=== PATIENT | female | born 1955 | race Caucasian/White ===

== ENCOUNTER 2017-10-16 12:51 | Observation (INO) ==
[2017-10-16] MEDS ORDERED: HYDROmorphone PF Inj 1 MG/ML Ampul IV.PUSH STA (14:28)
[2017-10-16] MEDS ORDERED: HYDROmorphone PF Inj 2 MG/ML Vial IV.PUSH STA (14:34)
[2017-10-16 14:41] LABS: Baso % (Auto) 0.6 % (0.0-2.0); Eos # (Auto) 0.3 th/mm3 (0.0-0.4); Eos % (Auto) 3.7 % (0.0-4.0); Hemoglobin 12.3 gm/dL (11.6-15.3); Lymph # (Auto) 1.4 th/mm3 (1.0-4.8); Lymph % (Auto) 16.6 % (9.0-44.0); Mean Corpuscular HGB Conc 32.4 % (32.0-36.0); Mean Corpuscular Hemoglobin 29.8 pg (27.0-34.0); Mean Corpuscular Volume 92.1 fL (80.0-100.0); Mean Platelet Volume 7.4 fL (7.0-11.0); Mono # (Auto) 0.5 th/mm3 (0.0-0.9); Mono % (Auto) 5.9 % (0.0-8.0); Neut % (Auto) 73.2 % (16.0-70.0); Platelet Count 395 th/mm3 (150-450); Red Blood Count 4.13 mil/mm3 (4.00-5.30); White Blood Count 8.2 th/mm3 (4.0-11.0)
[2017-10-16 14:56] LABS: Chloride 100 meq/L (98-107); Potassium 4.4 meq/L (3.5-5.1); Sodium 138 meq/L (136-145)
[2017-10-16 15:02] LABS: Calcium 8.9 mg/dL (8.5-10.1)
[2017-10-16 15:03] LABS: Albumin 2.9 g/dL (3.4-5.0); Anion Gap 6 meq/L (5-15); Blood Urea Nitrogen 11 mg/dL (7-18); Carbon Dioxide 32.3 meq/L (21.0-32.0); Glucose,Random 114 mg/dL (74-106)
[2017-10-16 15:06] LABS: Alanine Aminotransferase 22 U/L (10-53); Aspartate Aminotransferase 27 U/L (15-37); Glomerular Filtration Rate 73 mL/min (>89)
[2017-10-16 15:08] LABS: Total Protein 8.1 g/dL (6.4-8.2)
[2017-10-16 15:09] LABS: Alkaline Phosphatase 90 U/L (45-117)
[2017-10-16 15:12] LABS: Creatine Kinase 35 U/L (26-192)
[2017-10-16 15:22] LABS: Prothrombin Time 64.1 sec (9.8-11.6)
[2017-10-16 15:39] LABS: Activated Partial Thrombo Time 63.6 sec (24.3-30.1)
[2017-10-16 15:44] LABS: INR 6.4 Ratio
--- NOTE | 2017-10-16 15:46 | ED ---
HPI General Chief complaint: Recheck/Abnormal Lab/Rx Stated complaint: Fell x 8 days/low back pain History of Present Illness HPI narrative: 62-year-old history of DVT, pulmonary embolism on warfarin 5 mg alternating with 6 mg daily, she has history of abdominal wall hernia, she is wheelchair dependent, a week ago she fell from the wheelchair, she was discharged after workup was completed, today she is here for supratherapeutic INR. Patient has a home nurse who checked her INR and was 8.5. Patient has no bleeding, no black stool. No chest pain or shortness of breath or any other complaints except for lower back pain from the fall a week ago. Related Data Home Medications Medication Instructions Recorded Confirmed cholecalciferol (vitamin D3) 2,000 unit PO DAILY 10/08/17 10/16/17 [Vitamin D3] glimepiride 4 mg PO BID 10/08/17 10/16/17 metoprolol succinate [Toprol XL] 50 mg PO DAILY 10/08/17 10/16/17 omeprazole 40 mg PO EVERY OTHER DAY 10/08/17 10/16/17 sertraline 100 mg PO DAILY 10/08/17 10/16/17 warfarin 5 mg PO Q OTHER DAY 10/08/17 10/16/17 warfarin 6 mg PO EVERY OTHER DAY 10/08/17 10/16/17 cyclobenzaprine 10 mg PO TID 10/16/17 10/16/17 Previous Rx's Medication Instructions Recorded oxycodone-acetaminophen [Percocet] 2 tab PO Q6H #16 tab 10/08/17 Allergies Allergy/AdvReac Type Severity Reaction Status Date / Time No Known Allergies Allergy Verified 10/16/17 13:35 Review of Systems ROS: all other systems reviewed are negative [facility] Medical History Medical History DVT (deep venous thrombosis) (Acute) Presence of IVC filter (Acute) A-fib (Acute) Brain bleed (Acute) Diabetes (Acute) GERD (gastroesophageal reflux disease) (Acute) Hypertension (Acute) Pulmonary embolism (Acute) Umbilical hernia (Acute) Surgical History Surgical History Hx of cholecystectomy (Acute) Hx of tonsillectomy (Acute) H/O craniotomy (Acute) H/O right knee surgery (Acute) History of appendectomy (Acute) History of embolectomy (Acute) Social History Social History Substance History: No History of Abuse Smoking Status: Never smoker How Often Do You Have a Drink Containing Alcohol: Never Recent Travel in [facility] within the Last 8 Weeks: No Recent Out of Country Travel within the Last 8 Weeks: No Immunization History Tetanus Immunization: Unsure Hx Influenza Vaccine This Season: No Exam Narrative Exam Narrative: GENERAL: Alert oriented 3 no acute distress SKIN: Focused skin assessment warm/dry. HEAD: Atraumatic. Normocephalic. EYES: Pupils equal and round. No scleral icterus. No injection or drainage. ENT: No nasal bleeding or discharge. Mucous membranes pink and moist. NECK: Trachea midline. No JVD. CARDIOVASCULAR: Regular rate and rhythm. No murmur appreciated. RESPIRATORY: No accessory muscle use. Clear to auscultation. Breath sounds equal bilaterally. GASTROINTESTINAL: Abdominal wall open wound, clean with some clear discharge abdomen soft, non-tender, nondistended. Hepatic and splenic margins not palpable. MUSCULOSKELETAL: No obvious deformities. No clubbing. No cyanosis. No edema. NEUROLOGICAL: Awake and alert. No obvious cranial nerve deficits. Motor grossly within normal limits. Normal speech. PSYCHIATRIC: Appropriate mood and affect; insight and judgment normal. Course Initial Documented Vital Signs Temperature 98.6 F 10/16/17 12:58 Pulse Rate 149 H 10/16/17 12:58 Respiratory Rate 18 10/16/17 12:58 Blood Pressure 122/57 L 10/16/17 12:58 Pulse Oximetry 95 10/16/17 12:58 Last Documented Vital Signs Temperature 98.6 F 10/16/17 12:58 Pulse Rate 73 10/16/17 15:55 Respiratory Rate 16 10/16/17 15:55 Blood Pressure 113/49 L 10/16/17 15:55 Pulse Oximetry 98 10/16/17 15:[address] [facility] Narrative Medical decision making narrative: 62-year-old female here for supratherapeutic INR of 8.5 at home, she has no bleeding, unable to do a Hemoccult on her due to body habitus, I am unable to fully examine her back due to pain, patient received Dilaudid here in the ER, she has abdominal wall open wound that she stays from my abdominal hernia that surgeries following with her, INR here is 6.5, patient will be admitted for supratherapeutic INR, received vitamin K p.o. , spoke with Dr. Hayward who accepted the patient. Medical Screen Exam Complete: Yes Emergency Medical Condition: Yes Lab Data Result diagrams: 10/16/17 14:15 10/16/17 14:15 Lab Results 10/16/17 10/16/17 10/16/17 Range/Units 14:15 14:15 14:15 CBC w Diff Auto diff final WBC 8.2 (4.0-11.0) th/mm3 RBC 4.13 (4.00-5.30) mil/mm3 Hgb 12.3 (11.6-15.3) gm/dL Hct 38.0 (35.0-46.0) % MCV 92.1 (80.0-100.0) fL MCH 29.8 (27.0-34.0) pg MCHC 32.4 (32.0-36.0) % RDW 14.0 (11.6-17.2) % Plt Count 395 (150-450) th/mm3 MPV 7.4 (7.0-11.0) fL Neut % (Auto) 73.2 H (16.0-70.0) % Lymph % (Auto) 16.6 (9.0-44.0) % [place] % (Auto) 5.9 (0.0-8.0) % Eos % (Auto) 3.7 (0.0-4.0) % Baso % (Auto) 0.6 (0.0-2.0) % Neut # (Auto) 6.0 (1.8-7.7) th/mm3 Lymph # (Auto) 1.4 (1.0-4.8) th/mm3 [place] # (Auto) 0.5 (0.0-0.9) th/mm3 Eos # (Auto) 0.3 (0.0-0.4) th/mm3 Baso # (Auto) 0.0 (0.0-0.2) th/mm3 WBC Differential . Differential Comment . PT 64.1 H (9.8-11.6) sec INR 6.4 H* Ratio APTT 63.6 H (24.3-30.1) sec Sodium 138 (136-145) meq/L Potassium 4.4 (3.5-5.1) meq/L Chloride 100 (98-107) meq/L Carbon Dioxide 32.3 H (21.0-32.0) meq/L Anion Gap 6 (5-15) meq/L BUN 11 (7-18) mg/dL Creatinine 0.79 (0.50-1.00) mg/dL Estimated GFR 73 L (>89) mL/min Random Glucose 114 H (74-106) mg/dL Calcium 8.9 (8.5-10.1) mg/dL Total Bilirubin 0.3 (0.2-1.0) mg/dL AST 27 (15-37) U/L ALT 22 (10-53) U/L Alkaline Phosphatase 90 (45-117) U/L Total Creatine Kinase 35 (26-192) U/L Troponin I Less than 0.02 L (0.02-0.05) ng/mL Total Protein 8.1 (6.4-8.2) g/dL Albumin 2.9 L (3.4-5.0) g/dL Discharge Plan Physicians Team ED Provider: Moises Adam Primary Care Provider: Santana Hargrove Attending Provider: Joseph Hayward Rxs /Orders / Referrals /Forms Prescriptions: No Action cyclobenzaprine 10 mg Tablet 10 mg PO TID RF: 0 metoprolol succinate [Toprol XL] 50 mg Tablet Extended Release 24 Hr 50 mg PO DAILY RF: 0 sertraline 100 mg Tablet 100 mg PO DAILY RF: 0 omeprazole 40 mg Capsule,Delayed Release(Dr/Ec) 40 mg PO EVERY OTHER DAY RF: 0 warfarin 6 mg Tablet 6 mg PO EVERY OTHER DAY RF: 0 glimepiride 4 mg Tablet 4 mg PO BID RF: 0 warfarin 5 mg Tablet 5 mg PO Q OTHER DAY RF: 0 cholecalciferol (vitamin D3) [Vitamin D3] 2,000 unit Tablet 2,000 unit PO DAILY RF: 0 oxycodone-acetaminophen [Percocet] 5-325 mg tablet 2 tab PO Q6H Qty: 16 RF: 0 Discharge Interventions Interventions: Vital Signs Last Done: 10/16/17 15:55 Status ED Status: Admitted Observation Patient
[2017-10-16] MEDS ORDERED: Phytonadione 5 MG/SWFI 5 ML Oral Syringe PO STA (15:52)
[2017-10-16] MEDS ORDERED: Bisacodyl 10 MG Supp RECTAL PRN (17:12)
[2017-10-16] MEDS ORDERED: Acetaminophen 325 MG Tablet PO PRN (17:12)
[2017-10-16] MEDS ORDERED: Dextrose 50% in Water 50 ML Vial IV.PUSH PRN (17:16)
--- NOTE | 2017-10-16 17:33 | P.HP ---
History of Present Illness Primary Care Physician: Santana Hargrove Chief Complaint: Elevated INR History of Present Illness: 62-year-old female with known history of atrial fibrillation, hypertension, history of pulmonary emboli, DVT, diabetes, history of intracranial hemorrhage due to supratherapeutic INR who presented to the emergency department because of supratherapeutic INR. Patient states that all this started approximately 8 days ago when she got her nightgown caught in her electric scooter and when she try to put out she fell backwards onto her butt and back. Patient did come to emergency department time and had CT scans done of her thoracic and lumbar spine without any acute abnormality. Patient was discharged home with pain medication, muscle relaxer. Patient continued to have significant pain and home health care was ordered for her. They came out to her house today for the first time they checked her INR in notified her that it was 8.4 and that she needed to go to the emergency department for evaluation. Patient states that she had had previous elevated INR is in the past and subsequently after that she developed a bilateral intracranial hemorrhage. Patient is very overly concerned about the INR level. She is treated with Coumadin for her atrial fibrillation, she does have history of pulmonary emboli and DVTs. Patient does have IVC filter. Patient presented to the emergency department and had laboratory studies performed her INR was 6.4. Patient does not have any signs of any active bleeding. Did not notice any prolonged bleeding, gums bleeding, dark colored stools, hematochezia, hematuria. ER physician evaluated patient and give the patient vitamin K 5 mg a recommended observation the hospital. Patient still having significant amount of back pain where she is having difficulty in ambulating, getting out of bed. She requested that a Bruno be placed in the emergency department because she is unable to get out of bed to urinate. Patient denies any unilateral lower extremity weakness, paresthesia, paralysis, loss of bowel or bladder control. - Diagnosis (1) Supratherapeutic INR Review of Systems All other systems reviewed negative except as stated in HPI Musculoskeletal: Reports abnormal walking, Reports back pain PMFSH - History History Provided By: Patient - Medical History Medical History: Medical History (Last Reviewed 10/16/17 @ 17:30 by MOIRA Harris) DVT (deep venous thrombosis) Presence of IVC filter A-fib Brain bleed Diabetes GERD (gastroesophageal reflux disease) Hypertension Pulmonary embolism Umbilical hernia - Surgical History Surgical History: Surgical History (Last Reviewed 10/16/17 @ 17:30 by MOIRA Harris) Hx of cholecystectomy Hx of tonsillectomy H/O craniotomy H/O right knee surgery History of appendectomy History of embolectomy - Family History Family History: Family History (Last Updated 10/16/17 @ 17:30 by MOIRA Harris) Mother History of liver cancer History of coronary artery disease Father History of valvular heart disease - Tobacco History Second Hand Smoke Exposure: No Tobacco Use In Past 30 Days: No Smoking Status: Never smoker - Alcohol History How Often Do You Have a Drink Containing Alcohol: Never - Substance Use History Substance History: No History of Abuse - Travel History Recent Travel in the [place] Within the Last 8 Weeks: No Recent Travel Out of the Country Within the Last 8 Weeks: No - Immunization History Tetanus Immunization: Unsure Hx Influenza Vaccine This Season: No Medications and Allergies Active Medications: Active Medications Acetaminophen (Tylenol) 650 mg PO Q4H PRN PRN Reason: Temp > 100.4 Al Hydroxide/Mg Hydroxide (Milk Of Magnesia Liq) 30 ml PO Q12H PRN PRN Reason: Mild Constipation Bisacodyl (Dulcolax Supp) 10 mg RECTAL DAILY PRN PRN Reason: SEVERE CONSITIPATION Dextrose (D50w Vial) 50 ml IV.PUSH UNSCH PRN PRN Reason: PER HYPOGLYCEMIA PROTOCOL Glucagon (Glucagon Inj) 1 mg OTHER PRN PRN PRN Reason: for Hypoglycemia Protocol Methocarbamol 1,000 mg/ Sodium (Chloride) 250 mls @ 500 mls/hr IV.SIG Q8HR CHAVA Stop: 10/19/17 06:29 Insulin Aspart (Novolog Insulin Correctional Sugar Inj) 0 unit SQ ACHS CHAVA; Protocol Ketorolac Tromethamine (Toradol Inj) 30 mg IV.PUSH Q6H CHAVA Lactulose (Lactulose Liq) 30 ml PO DAILY PRN PRN Reason: SEVERE CONSITIPATION Metoprolol Succinate (Toprol Xl) 50 mg PO DAILY CHAVA Ondansetron HCl (Zofran Inj) 4 mg IV.PUSH Q6H PRN PRN Reason: NAUSEA OR VOMITING Senna/Docusate Sodium (Tamie-Colace) 1 tab PO BID CHAVA Sennosides (Senokot) 17.2 mg PO Q12H PRN PRN Reason: Moderate Constipation Sertraline HCl (Zoloft) 100 mg PO DAILY CHAVA Allergies Allergy/AdvReac Type Severity Reaction Status Date / Time No Known Allergies Allergy Verified 10/16/17 13:35 Home Medications Medication Instructions Recorded Confirmed Type cholecalciferol (vitamin D3) 2,000 unit PO DAILY 10/08/17 10/16/17 History [Vitamin D3] glimepiride 4 mg PO BID 10/08/17 10/16/17 History metoprolol succinate [Toprol XL] 50 mg PO DAILY 10/08/17 10/16/17 History omeprazole 40 mg PO EVERY OTHER DAY 10/08/17 10/16/17 History sertraline 100 mg PO DAILY 10/08/17 10/16/17 History warfarin 5 mg PO Q OTHER DAY 10/08/17 10/16/17 History warfarin 6 mg PO EVERY OTHER DAY 10/08/17 10/16/17 History cyclobenzaprine 10 mg PO TID 10/16/17 10/16/17 History Exam Vital signs: Vital Signs 10/16/17 12:58 10/16/17 15:55 10/16/17 17:16 Temperature 98.6 F 97.3 F L Pulse Rate 149 H 73 70 Respiratory Rate 18 16 18 Blood Pressure 122/57 L 113/49 L 111/55 L Pulse Oximetry 95 98 95 Intake & Output 10/15/17 10/16/17 10/16/17 18:59 06:59 18:59 Weight 143.5 kg Other: Weight On Admission 143.5 kg Narrative: GENERAL: Well-developed, morbidly obese, in no acute distress. alert and orientated HEENT: Head is normocephalic without any lesions or masses noted. Facial features are symmetric. Eyes: Pupils equal round reactive to light. Extraocular muscles are intact. Conjunctivae were clear. Oropharyngeal: Pharynx without any erythema edema. Tongue is midline without deviation. Buccal mucosa is moist without any masses or lesions NECK: Supple without any masses. Trachea midline no deviation. No JVD, no bruits are appreciated CARDIAC: Regular rhythm, regular rate. S1/S2 are heard. No murmurs gallops or rubs. LUNGS: Clear to auscultation bilaterally. No wheeze, rhonchi or rales. No use of accessory muscles on inspiration or expiration. ABDOMEN: Soft, nontender. Nondistended. Bowel sounds heard in all 4 quadrants. No organomegaly or masses. Negative rebound, negative guarding EXTREMITIES: No edema, pulses are equal bilaterally. No cyanosis or clubbing NEUROLOGY: Mood and affect appear appropriate. Cranial nerves II through XII grossly intact. Muscle strength 5/5 in upper and lower extremities bilaterally. Deep tendon reflexes are 2+ in upper and lower extremities bilaterally. Results - Labs CBC & Chem 7: 10/16/17 14:15 10/16/17 14:15 Labs: Laboratory Results - last 24 hr 10/16/17 10/16/17 10/16/17 14:15 14:15 14:15 CBC w Diff Auto diff final WBC 8.2 RBC 4.13 Hgb 12.3 Hct 38.0 MCV 92.1 MCH 29.8 MCHC 32.4 RDW 14.0 Plt Count 395 MPV 7.4 Neut % (Auto) 73.2 H Lymph % (Auto) 16.6 [place] % (Auto) 5.9 Eos % (Auto) 3.7 Baso % (Auto) 0.6 Neut # (Auto) 6.0 Lymph # (Auto) 1.4 [place] # (Auto) 0.5 Eos # (Auto) 0.3 Baso # (Auto) 0.0 WBC Differential . Differential Comment . PT 64.1 H INR 6.4 H* APTT 63.6 H Sodium 138 Potassium 4.4 Chloride 100 Carbon Dioxide 32.3 H Anion Gap 6 BUN 11 Creatinine 0.79 Estimated GFR 73 L Random Glucose 114 H Calcium 8.9 Total Bilirubin 0.3 AST 27 ALT 22 Alkaline Phosphatase 90 Total Creatine Kinase 35 Troponin I Less than 0.02 L Total Protein 8.1 Albumin 2.9 L Caprini VTE Risk Assessment Caprini VTE Risk Assessment: Moderate/High Risk (score >= 2) Caprini Risk Assessment Model: Point Value = 1 Point Value = 2 Point Value = 3 Point Value = 5 Age 41-60 Minor surgery BMI > 25 kg/m2 Swollen legs Varicose veins or History of unexplained or recurrent spontaneous Oral contraceptives or hormone replacement Sepsis (< 1 month) Serious lung disease, including pneumonia (< 1 month) Abnormal pulmonary function Acute myocardial infarction Congestive heart failure (< 1 month) History of inflammatory bowel disease Medical patient at bed rest Age 61-74 Arthroscopic surgery Major open surgery (> 45 min) Laparoscopic surgery (> 45 min) Malignancy Confined to bed (> 72 hours) Immobilizing plaster cast Central venous access Age >= 75 History of VTE Family history of VTE Factor V Leiden Prothrombin [id number] Lupus anticoagulant Anticardiolipin antibodies Elevated serum homocysteine Heparin-induced thrombocytopenia Other congenital or acquired thrombophilia Stroke (< 1 month) Elective arthroplasty Hip, pelvis, or leg fracture Acute spinal cord injury (< 1 month) Prophylaxis Regimen: Total Risk Factor Score Risk Level Prophylaxis Regimen 0-1 Low Early ambulation 2 Moderate Order ONE of the following: *Sequential Compression Device (SCD) *Heparin 5000 units SQ BID 3-4 Higher Order ONE of the following medications: *Heparin 5000 units SQ TID *Enoxaparin/Lovenox 40 mg SQ daily (WT < 150 kg, CrCl > 30 mL/min) *Enoxaparin/Lovenox 30 mg SQ daily (WT < 150 kg, CrCl > 10-29 mL/min) *Enoxaparin/Lovenox 30 mg SQ BID (WT < 150 kg, CrCl > 30 mL/min) AND/OR *Sequential Compression Device (SCD) 5 or more Highest Order ONE of the following medications: *Heparin 5000 units SQ TID (Preferred with Epidurals) *Enoxaparin/Lovenox 40 mg SQ daily (WT < 150 kg, CrCl > 30 mL/min) *Enoxaparin/Lovenox 30 mg SQ daily (WT < 150 kg, CrCl > 10-29 mL/min) *Enoxaparin/Lovenox 30 mg SQ BID (WT < 150 kg, CrCl > 30 mL/min) AND *Sequential Compression Device (SCD) Assessment and Plan - Assessment (1) Supratherapeutic INR Code(s): R79.1 - Abnormal coagulation profile Status: Acute - Plan Supratherapeutic INR -Patient does not have any active bleeding noted at this time. Patient does have history of intracranial hemorrhage secondary to elevated INR. Will need to continue monitor closely -Status post vitamin K in the emergency department -Continue to hold Coumadin -PT/INR daily Acute low back pain -Start Toradol IV every 6 hours -Start Robaxin IV every 8 hours -K thermia pad to the area -Physical therapy evaluation Atrial fibrillation, hypertension -Home medications were continued Diabetes -Accu-Cheks with sliding scale insulin DVT prevention -Patient is on Coumadin with supratherapeutic INR at 6.4 at this time
[2017-10-16] MEDS: Ketorolac Inj 30 MG/ML (IVP) Vial IV.PUSH SCH ×2 (17:56→23:35)
[2017-10-16] MEDS: Methocarbamol Inj 1,000 MG in Sodium Chlor 0.9% Inj 240 ML IV.SIG SCH (18:09)
[2017-10-16] MEDS: Senna/Docusate Sodium 8.6/50 MG Tablet PO SCH (20:14)
[2017-10-16] MEDS: Insulin NovoLOG Aspart Correctional Sugar Inj SQ SCH (20:15)
[2017-10-17] MEDS: Methocarbamol Inj 1,000 MG in Sodium Chlor 0.9% Inj 240 ML IV.SIG SCH ×2 (02:26→09:39)
[2017-10-17] MEDS: Ketorolac Inj 30 MG/ML (IVP) Vial IV.PUSH SCH ×4 (05:20→23:51)
[2017-10-17 07:11] LABS: INR 4.2 Ratio; Prothrombin Time 41.7 sec (9.8-11.6)
--- NOTE | 2017-10-17 07:53 | P.DCO ---
- Physical Therapy Order: Evaluate and treat, Improve ambulation, Strength and gait training - Home Health Nursing Order: Medical education, Signs/symptoms of disease process, Nursing assessment with vital signs Instructions: PT/INR daily for 3 days then PT/INR 3 times weekly for 1 week, then PT/INR weekly for 3 weeks. Results to be sent to her primary medical doctor Dr. Hargrove - Certification I have seen patient Anju Scott on 10/17/17. My clinical findings support the need for the requested home health care services because: Deconditioned with increased weakness, High risk of falls I certify that my clinical findings support that this patient is homebound because: Unsteady gait/balance, Unsafe to leave home unassisted
--- NOTE | 2017-10-17 07:57 | P.PN ---
Subjective Interval history: 62-year-old female who is seen and examined in follow-up today because of supratherapeutic INR. Patient's INR is much improved today. Discussed with her that she would need to hold her Coumadin for at least another 2 days. Home health care should be able to manage her PT/INR. Patient's back pain is improved with the treatment being given to her here at the hospital. Vital signs are stable, patient remains afebrile. Physical Exam Vital signs: Vital Signs 10/16/17 12:58 10/16/17 15:55 10/16/17 17:16 Temperature 98.6 F 97.3 F L Pulse Rate 149 H 73 70 Respiratory Rate 18 16 18 Blood Pressure 122/57 L 113/49 L 111/55 L Pulse Oximetry 95 98 95 10/16/17 18:26 10/16/17 20:00 10/17/17 00:00 Temperature 97.4 F L 97.2 F L Pulse Rate 68 62 Respiratory Rate 18 18 Blood Pressure 92/46 L 134/61 Pulse Oximetry 95 98 Intake & Output 10/16/17 10/17/17 10/17/17 18:59 06:59 18:59 Intake Total 640 / 640 490 / 490 Output Total 50 / 50 450 / 450 Balance 590 / 590 40 / 40 Weight 143.5 kg 143.5 kg Intake: IV 250 / 250 250 / 250 Robaxin Inj 1,000 MG In NS Inj 250 / 250 250 / 250 240 ML @ 500 mls/hr IV.SIG Q8H CHAVA Rx#:[id number] Oral 390 / 390 240 / 240 Output: Urine 50 / 50 450 / 450 Other: Date of Last Bowel Movement 10/16/17 10/16/17 # Bowel Movements 0 Weight On Admission 143.5 kg Narrative: GENERAL: Well-developed, morbidly obese, in no acute distress. alert and orientated HEENT: Head is normocephalic without any lesions or masses noted. Facial features are symmetric. Eyes: Extraocular muscles are intact. Conjunctivae were clear. NECK: Supple without any masses. Trachea midline no deviation. No JVD, CARDIAC: Regular rhythm, regular rate. S1/S2 are heard. No murmurs gallops or rubs. LUNGS: Clear to auscultation bilaterally. No wheeze, rhonchi or rales. No use of accessory muscles on inspiration or expiration. ABDOMEN: Soft, nontender. Nondistended. Bowel sounds heard in all 4 quadrants. No organomegaly or masses. Negative rebound, negative guarding EXTREMITIES: No edema, pulses are equal bilaterally. No cyanosis or clubbing NEUROLOGY: Mood and affect appear appropriate. Cranial nerves II through XII grossly intact. Moving all extremities, speech is clear - Urinary Catheter Management Indwelling Urethral Catheter Cath placed during this visit: yes Reason for continuing: Other continuation reason Insertion date: 10/16/17 Insertion time: 16:15 Results - Labs CBC & Chem 7: 10/16/17 14:15 10/16/17 14:15 Laboratory Results - last 24 hr 10/16/17 10/16/17 10/16/17 14:15 14:15 14:15 CBC w Diff Auto diff final WBC 8.2 RBC 4.13 Hgb 12.3 Hct 38.0 MCV 92.1 MCH 29.8 MCHC 32.4 RDW 14.0 Plt Count 395 MPV 7.4 Neut % (Auto) 73.2 H Lymph % (Auto) 16.6 [place] % (Auto) 5.9 Eos % (Auto) 3.7 Baso % (Auto) 0.6 Neut # (Auto) 6.0 Lymph # (Auto) 1.4 [place] # (Auto) 0.5 Eos # (Auto) 0.3 Baso # (Auto) 0.0 WBC Differential . Differential Comment . PT 64.1 H INR 6.4 H* APTT 63.6 H Sodium 138 Potassium 4.4 Chloride 100 Carbon Dioxide 32.3 H Anion Gap 6 BUN 11 Creatinine 0.79 Estimated GFR 73 L POC Glucose Random Glucose 114 H Calcium 8.9 Total Bilirubin 0.3 AST 27 ALT 22 Alkaline Phosphatase 90 Total Creatine Kinase 35 Troponin I Less than 0.02 L Total Protein 8.1 Albumin 2.9 L 10/16/17 10/17/17 20:13 06:18 CBC w Diff WBC RBC Hgb Hct MCV MCH MCHC RDW Plt Count MPV Neut % (Auto) Lymph % (Auto) [place] % (Auto) Eos % (Auto) Baso % (Auto) Neut # (Auto) Lymph # (Auto) [place] # (Auto) Eos # (Auto) Baso # (Auto) WBC Differential Differential Comment PT 41.7 H D INR 4.2 APTT Sodium Potassium Chloride Carbon Dioxide Anion Gap BUN Creatinine Estimated GFR POC Glucose 124 H Random Glucose Calcium Total Bilirubin AST ALT Alkaline Phosphatase Total Creatine Kinase Troponin I Total Protein Albumin Assessment and Plan - Assessment (1) Supratherapeutic INR Code(s): R79.1 - Abnormal coagulation profile Status: Acute (2) Intractable low back pain Code(s): M54.5 - Low back pain Status: Acute - Plan Supratherapeutic INR, improved -Patient still does not have any active bleeding noted at this time. Patient does have history of intracranial hemorrhage secondary to elevated INR. Will need to continue monitor closely -Status post vitamin K in the emergency department -Continue to hold Coumadin for at least another 2 days -PT/INR daily Acute low back pain -Continue Toradol IV every 6 hours -Continue Robaxin IV every 8 hours -K thermia pad to the area -Physical therapy evaluation for discharge planning: Physical therapy stated that patient failed evaluation miserably. They did not attempt a walker. Stood her up at bedside 3 separate occasions and patient had significant moans and groans with lightheadedness. Patient was placed back in the bed. Upon talking to the patient and notify her of the results. She states that that he was in normal status at home. Patient is upset that she cannot go home. I discussed with her that presently she is unsafe to discharge in her physical condition. She will require intense physical therapy 2 times daily until she is capable to function on her own. Atrial fibrillation, hypertension -Home medications were continued Diabetes -Accu-Cheks with sliding scale insulin DVT prevention -Patient is on Coumadin with supratherapeutic INR at 4.2 at this time
[2017-10-17] MEDS: Senna/Docusate Sodium 8.6/50 MG Tablet PO SCH ×2 (09:40→20:20)
[2017-10-17] MEDS: Sertraline 100 MG Tablet PO SCH (09:40)
[2017-10-17] MEDS: Insulin NovoLOG Aspart Correctional Sugar Inj SQ SCH ×4 (09:42→20:24)
[2017-10-17] MEDS: Methocarbamol 500 MG Tablet PO SCH (20:20)
[2017-10-18] MEDS: Ketorolac Inj 30 MG/ML (IVP) Vial IV.PUSH SCH ×3 (05:12→17:56)
[2017-10-18 06:27] LABS: INR 1.9 Ratio; Prothrombin Time 19.4 sec (9.8-11.6)
--- NOTE | 2017-10-18 07:48 | P.PN ---
Subjective Interval history: Patient seen and examined today for follow-up on supratherapeutic INR, low back pain. Patient states that she is feeling much better. Will need to await physical therapy clearance to go home with home health care. Vital signs are stable, patient remains afebrile. Physical Exam Vital signs: Vital Signs 10/17/17 08:00 10/17/17 11:54 10/17/17 15:56 Temperature 96.6 F L 97.4 F L 97.5 F L Pulse Rate 67 80 75 Respiratory Rate 18 Blood Pressure 109/55 L 118/52 L 131/62 Pulse Oximetry 96 96 95 10/17/17 20:00 10/18/17 00:00 Temperature 97.9 F 96.8 F L Pulse Rate 79 82 Respiratory Rate 20 Blood Pressure 126/57 L 148/63 H Pulse Oximetry 95 97 Intake & Output 10/17/17 10/18/17 10/18/17 18:59 06:59 18:59 Intake Total 970 / 970 480 / 480 Output Total 950 / 950 Balance 480 / 480 Weight 145.2 kg Intake: IV 250 / 250 Robaxin Inj 1,000 MG In NS Inj 250 / 250 240 ML @ 500 mls/hr IV.SIG Q8H CHAVA Rx#:[id number] Oral 720 / 720 480 / 480 Output: Urine 950 / 950 Other: # Voids 1 2 Date of Last Bowel Movement 10/16/17 10/16/17 # Bowel Movements 0 1 Narrative: GENERAL: Well-developed, morbidly obese, in no acute distress. alert and orientated HEENT: Head is normocephalic without any lesions or masses noted. Facial features are symmetric. Eyes: Extraocular muscles are intact. Conjunctivae were clear. NECK: Supple without any masses. Trachea midline no deviation. No JVD, CARDIAC: Regular rhythm, regular rate. S1/S2 are heard. No murmurs gallops or rubs. LUNGS: Clear to auscultation bilaterally. No wheeze, rhonchi or rales. No use of accessory muscles on inspiration or expiration. ABDOMEN: Soft, nontender. Nondistended. Bowel sounds heard in all 4 quadrants. No organomegaly or masses. Negative rebound, negative guarding EXTREMITIES: No edema, pulses are equal bilaterally. No cyanosis or clubbing NEUROLOGY: Mood and affect appear appropriate. Cranial nerves II through XII grossly intact. Moving all extremities, speech is clear - Urinary Catheter Management Indwelling Urethral Catheter Cath placed during this visit: yes, but has since been removed by the nurse Reason for continuing: Other continuation reason Insertion date: 10/16/17 Insertion time: 16:15 Removal date: 10/17/17 Removal time: 13:52 Results - Labs CBC & Chem 7: 10/16/17 14:15 10/16/17 14:15 Laboratory Results - last 24 hr 10/17/17 10/17/17 10/17/17 09:22 09:24 09:25 PT INR POC Glucose Greater than 600 H* 60 L 61 L 10/17/17 10/17/17 10/17/17 09:28 10:16 16:44 PT INR POC Glucose 60 L 151 H 133 H 10/17/17 10/18/17 10/18/17 20:23 06:00 07:14 PT 19.4 H D INR 1.9 POC Glucose 162 H 95 Assessment and Plan - Assessment (1) Supratherapeutic INR Code(s): R79.1 - Abnormal coagulation profile Status: Acute (2) Intractable low back pain Code(s): M54.5 - Low back pain Status: Acute - Plan Supratherapeutic INR, improved -Patient still does not have any active bleeding noted at this time. Patient does have history of intracranial hemorrhage secondary to elevated INR. Will need to continue monitor closely -Status post vitamin K in the emergency department -Resume Coumadin 5 mg daily -PT/INR daily Acute low back pain -Continue Toradol IV every 6 hours -Continue Robaxin IV every 8 hours -K thermia pad to the area -Physical therapy evaluation for discharge planning: Physical therapy stated that patient failed evaluation miserably. They did not attempt to walk her. Stood her up at bedside 3 separate occasions and patient had significant moans and groans with lightheadedness. Patient was placed back in the bed. Upon talking to the patient and notify her of the results. She states that that he was in normal status at home. Patient is upset that she cannot go home. I discussed with her that presently she is unsafe to discharge in her physical condition. She will require intense physical therapy 2 times daily until she is capable to function on her own. -Awaiting physical therapy clearance to go home with home health care, patient unable to go to rehab. Atrial fibrillation, hypertension -Home medications were continued Diabetes -Accu-Cheks with sliding scale insulin DVT prevention -Resume Coumadin today, INR 1.9 Discharge Planning: Discharge home with home health care in stable condition Activity: Ad grace. Diet: Diabetic diet Medication per medication reconciliation Follow-up with primary medical doctor in 1 week
[2017-10-18] MEDS: Senna/Docusate Sodium 8.6/50 MG Tablet PO SCH ×2 (08:20→22:43)
[2017-10-18] MEDS: Methocarbamol 500 MG Tablet PO SCH ×2 (08:20→22:43)
[2017-10-18] MEDS: Sertraline 100 MG Tablet PO SCH (08:21)
[2017-10-18] MEDS: Insulin NovoLOG Aspart Correctional Sugar Inj SQ SCH ×4 (08:21→22:44)
--- NOTE | 2017-10-18 17:49 | P.PNWCN ---
Wound Care Nurse Consult Description: Wound consult ordered by Humphrey PIZARRO for wound management. Communicated with: Seema GONZALES, Humphrey PIZARRO Recommendation: 1. Cleanse Midline abdomen full thickness ulcer with normal saline pat dry.Skin prep periwound. 2. Gently pack undermining cavity with Maxorb AG (cut in single half piece) Apply with sterile cotton tip applicator, leaving tail on wound base. 3. Cover with Opti foam gentle signa and date all dressing. 4. Please measure wound and undermining weekly. 5. Change dressing Daily x7 days ,Then every 3 days x4 weeks 6. Cleanse pannus and breast skin folds with remedy soft cloth barrier wipes and apply thin layer of Remedy antifungal powder in even thin layer BID or as needed for moisture control. 7. Follow up with out patient wound center. Additional information: Patient was seen today by communications writer and Seema GONZALES [facility].Patient alert and oriented x4 resting in bed in no acute distress.Dressing removed from midline abdomen to reveal a full thickness Ulcer .Wound base measures 2.5cm x5.0cm x0.8cm is 50% moist pink newly epithelized tissue and 50% moist fascia.Wound edges are well defined and sloped with wound base.Patient state she has had underlining umbilicus hernia for 21 year in which she has never had repair on.Firm large hernia palpated.Upon measurements of ulcer communications writer was able to probe using sterile cotton tip applicator undermining cavity from 7 O'clock to 11 O'clock with max depth being @ 8 O'clock of 7.0 cm .Moderate amount of brown/milky purulent exudate expressed with foul odor.Culture obtained.Necktie Turner would recommend imagining to rule out any possibility of a fistula.Patient currently on antibiotics.Wound/undermining cleansed with normal saline and pat dry.Periwound intact cool to touch no erythema/induration noted.Skin prep applied to periwound.Maxorb AG cut in single half sheet gently packed into undermining using cotton tip applicator tail left on wound base.Covered/secured with Optifoam gentle.Dressing signed and dated.patient denied fever,chills,pain. Wound/Pressure Injury - Patient Status Premedicated for Pain Prior to Dressing Change: (wound purlent discharge documented in nureses notes as well) - Wound Midline Abdomen Wound Assessment: Ongoing Wound Type: Traumatic Wound Is This a Chronic Wound: Yes Requested from Provider a Wound Care Consult: No (Neftali GONZALES,[facility] seen 10/18) Length: 2.5 Width: 5.0 Depth: 0.8 Wound Bed Appearance: [place], Tunneling/Undermining (undermining noted from7-11 O' clock @ 7.0cm), White Surrounding Tissue Appearance: [place], Taut Surrounding Tissue Temperature: Cool Drainage Description: Purulent Drainage Amount: Moderate Drainage Odor: Foul Odor Dressing Status: Dry & Intact, Changed Cleansing Solution: Saline Wound Packing Type: Alginate Cover Dressing: Adhesive Dressing (Optifoam gentle) Wound Dressing Change Date: 10/18/17 Incision - Patient Status Premedicated for Pain Prior to Dressing Change: (wound purlent discharge documented in nureses notes as well)
[2017-10-19] MEDS: Ketorolac Inj 30 MG/ML (IVP) Vial IV.PUSH SCH ×4 (01:30→17:42)
--- NOTE | 2017-10-19 01:37 | CT ---
EXAM DATE: 10/19/2017 1:18 AM EDT AGE/SEX: 62 years / Female INDICATIONS: Abscess. Cutaneous opening in left umbilical region. Evaluate for fistula. CLINICAL DATA: This is the patient's initial encounter. Patient reports that signs and symptoms have been present for 1 month and indicates a pain score of 10/10. MEDICAL/SURGICAL HISTORY: Diabetes. Gastroesophageal reflux disease. Hypertension. Umbilical hernia. Cholecystectomy. IVC Filter placement. RADIATION DOSE: 25.02 CTDI (mGy) ; Patient body habitus COMPARISON: [facility] [place], CT PELVIS W/O CONTRAST, 10/08/2017. . TECHNIQUE: Multiple contiguous axial images were obtained through the abdomen. Images were obtained using multiple row detector helical technique. Using automated exposure control and adjustment of the mA and/or kV according to patient size, radiation dose was kept as low as reasonably achievable to o btain optimal diagnostic quality images. DICOM format image data is available electronically for rev iew and comparison. FINDINGS: Lower Lungs: The visualized lower lungs are clear. Liver: The liver has a homogeneous density without space-occupying lesion. There is no dilation of th e biliary tree. Prior cholecystectomy. Spleen: Homogeneous density without enlargement. Pancreas: Unremarkable without mass or calcification. Kidneys: Normal in size and shape. 5 mm nonobstructing right renal stone. No evidence of mass or hyd ronephrosis. Adrenal Glands: Unremarkable. Aorta: The aorta and proximal iliac vessels are grossly unremarkable without aneurysmal dilation. Bowel/Mesentery: The bowel loops are grossly unremarkable. The cecum and sigmoid colon have a normal configuration. Abdominal Wall: There is a very large umbilical hernia containing loops of large and small bowel. Th ere is linear air within the subcutaneous fat associated with the umbilical hernia.. Retroperitoneum: No evidence of adenopathy in the retrocrural, para-aortic, or deep pelvic regions. Bladder: Contours are smooth. Reproductive Organs: No abnormal masses or calcifications seen. Inguinal: The inguinal region is unremarkable without evidence of adenopathy. Bony Structures: Unremarkable. IVC filter noted. CONCLUSION: 1. There is a large umbilical hernia containing loops of large and small bowel. A linear tract of ai r is seen within the subcutaneous tissues which could relate to a fistulous communication to one of t he loops of bowel. 2. 5 mm nonobstructing right renal stone. 3. Prior cholecystectomy. Electronically signed by: Moreno Castillo MD 10/19/2017 1:36 AM EDT
[2017-10-19 06:52] LABS: INR 1.5 Ratio; Prothrombin Time 14.9 sec (9.8-11.6)
--- NOTE | 2017-10-19 07:53 | P.PN ---
Subjective Interval history: Follow up supratherapeutic INR and abdominal wound with possible abdominal fistula. Patient seen and examined, sitting in chair comfortably no apparent distress. Patient denies any pain overnight. Has been eating and drinking well with no abdominal pain nausea or vomiting. Wound assessed, CT of the abdomen reviewed showing possible fistula. General surgery consulted and spoke to, will see patient today for evaluation of possible surgery. Physical Exam Vital signs: Vital Signs 10/18/17 08:00 10/18/17 12:00 10/18/17 15:45 Temperature 97.8 F 97.0 F L Pulse Rate 86 72 Respiratory Rate 18 20 Blood Pressure 132/58 L 127/58 L Pulse Oximetry 95 95 10/18/17 15:47 10/18/17 20:00 10/19/17 00:00 Temperature 97.0 F L 98 F 99 F Pulse Rate 86 75 75 Respiratory Rate 18 Blood Pressure 153/68 H 132/62 136/63 Pulse Oximetry 95 92 L 95 10/19/17 06:53 Temperature Pulse Rate Respiratory Rate 18 Blood Pressure Pulse Oximetry Intake & Output 10/18/17 10/19/17 10/19/17 18:59 06:59 18:59 Intake Total 860 / 860 480 / 480 Balance 860 / 860 480 / 480 Intake: Oral 860 / 860 480 / 480 Other: # Voids 2 3 Date of Last Bowel Movement 10/16/17 # Bowel Movements 0 Narrative: GENERAL: Well-developed, morbidly obese, in no acute distress. alert and orientated HEENT: Head is normocephalic without any lesions or masses noted. Facial features are symmetric. Eyes: Extraocular muscles are intact. Conjunctivae were clear. NECK: Supple without any masses. Trachea midline no deviation. No JVD, CARDIAC: Regular rhythm, regular rate. S1/S2 are heard. No murmurs gallops or rubs. LUNGS: Clear to auscultation bilaterally. No wheeze, rhonchi or rales. No use of accessory muscles on inspiration or expiration. ABDOMEN: Soft, nontender. Nondistended. Bowel sounds heard in all 4 quadrants. No organomegaly or masses. Negative rebound, negative guarding EXTREMITIES: No edema, pulses are equal bilaterally. No cyanosis or clubbing NEUROLOGY: Mood and affect appear appropriate. Cranial nerves II through XII grossly intact. Moving all extremities, speech is clear SKIN: Mid abdominal wound noted, serous drainage noted, annular, firm to touch, mild surrounding erythema, no fluctuance, no pain to palpation. - Urinary Catheter Management Indwelling Urethral Catheter Cath placed during this visit: yes, but has since been removed by the nurse Reason for continuing: Other continuation reason Insertion date: 10/16/17 Insertion time: 16:15 Removal date: 10/17/17 Removal time: 13:52 Results - Labs CBC & Chem 7: 10/16/17 14:15 10/16/17 14:15 Laboratory Results - last 24 hr 10/18/17 10/18/17 10/18/17 11:47 16:48 22:42 PT INR POC Glucose 134 H 129 H 145 H 10/19/17 10/19/17 05:48 07:50 PT 14.9 H INR 1.5 POC Glucose 118 H - Imaging Impressions Abdomen/Pelvis CT 10/19/17 00:00 CONCLUSION: 1. There is a large umbilical hernia containing loops of large and small bowel. A linear tract of air is seen within the subcutaneous tissues which could relate to a fistulous communication to one of the loops of bowel. 2. 5 mm nonobstructing right renal stone. 3. Prior cholecystectomy. Assessment and Plan - Assessment (1) Supratherapeutic INR Code(s): R79.1 - Abnormal coagulation profile Status: Acute (2) Intractable low back pain Code(s): M54.5 - Low back pain Status: Acute - Plan Supratherapeutic INR, improved. -Patient still does not have any active bleeding noted at this time. -Patient does have history of intracranial hemorrhage secondary to elevated INR. Will need to continue monitor closely -Status post vitamin K in the emergency department. -Previously resumed Coumadin 5 mg daily. Based on hold for now awaiting surgical consult. -Continue PT/INR daily. 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 A linear tract of air is seen within the subcutaneous tissues which could relate to a fistulous communication to one of the loops of bowel. -Wound culture obtained and pending. Will obtain labs today including CBC. No prior leukocytosis or fever. Continue to monitor for infection. -General surgery consulted, input and recommendations pending. For now we will hold Coumadin. -As well as place on n.p.o. Acute low back pain -Continue Toradol IV every 6 hours -Continue Robaxin IV every 8 hours -K homaia pad to the area -Physical therapy evaluation for discharge planning: Physical therapy stated that patient failed evaluation miserably yesterday. They did not attempt to walk her. Stood her up at bedside 3 separate occasions and patient had significant moans and groans with lightheadedness. Patient was placed back in the bed. She states that that he was in normal status at home. She is unsafe to discharge in her physical condition. She will require intense physical therapy 2 times daily until she is capable to function on her own. -Awaiting physical therapy clearance to go home with home health care, patient unable to go to rehab. Atrial fibrillation, hypertension -Home medications were continued Diabetes -Accu-Cheks with sliding scale insulin DVT prevention -INR 1.5 today. Will hold Coumadin for now, awaiting general surgery consult.
[2017-10-19] MEDS: Senna/Docusate Sodium 8.6/50 MG Tablet PO SCH ×3 (08:46→21:22)
[2017-10-19] MEDS: Methocarbamol 500 MG Tablet PO SCH ×2 (08:47→21:22)
[2017-10-19] MEDS: Sertraline 100 MG Tablet PO SCH (08:50)
[2017-10-19] MEDS: Insulin NovoLOG Aspart Correctional Sugar Inj SQ SCH ×4 (08:51→21:21)
[2017-10-19 10:15] LABS: Baso # (Auto) 0.1 th/mm3 (0.0-0.2); Baso % (Auto) 0.9 % (0.0-2.0); Eos # (Auto) 0.3 th/mm3 (0.0-0.4); Eos % (Auto) 4.4 % (0.0-4.0); Hematocrit 35.3 % (35.0-46.0); Hemoglobin 11.4 gm/dL (11.6-15.3); Lymph # (Auto) 1.5 th/mm3 (1.0-4.8); Lymph % (Auto) 20.1 % (9.0-44.0); Mean Corpuscular HGB Conc 32.3 % (32.0-36.0); Mean Corpuscular Hemoglobin 29.4 pg (27.0-34.0); Mean Corpuscular Volume 91.2 fL (80.0-100.0); Mean Platelet Volume 7.5 fL (7.0-11.0); Mono # (Auto) 0.5 th/mm3 (0.0-0.9); Mono % (Auto) 6.4 % (0.0-8.0); Neut # (Auto) 5.1 th/mm3 (1.8-7.7); Neut % (Auto) 68.2 % (16.0-70.0); Platelet Count 463 th/mm3 (150-450); Red Blood Count 3.87 mil/mm3 (4.00-5.30); Red Cell Distribution Width 14.5 % (11.6-17.2); White Blood Count 7.4 th/mm3 (4.0-11.0)
[2017-10-19 11:19] LABS: Calcium 8.7 mg/dL (8.5-10.1)
[2017-10-19 11:20] LABS: Carbon Dioxide 27.7 meq/L (21.0-32.0)
[2017-10-19] MEDS: Sod Chloride 0.9% Inj 1,000 ML IV.CONT SCH (15:05)
[2017-10-19 20:56] VITALS: TEMP 97.4; O2SAT 95
--- NOTE | 2017-10-19 21:18 | P.CONGS ---
[facility] Gen Surgery Consult Note Consult date: 10/19/17 Narrative: 62 yo F admitted with supratherapeutic INR with chronic abdominal wound questionable fistula based on CT a/p. She relates that she has had an abdominal wound for years which intermittently heals and then opens up. It has never had significant drainage or leakage except over the last month. The drainage saturates less than one paper towel per day at home. She has had a large umbilical/ventral hernia for 20 years. She has seen surgeons but has not been recommended for surgery due to comorbidities. She has a h/o DVT/PE and arterial clots and has been on coumadin. In 2014 she had bilateral craniotomy for SDH. She has lost 100 lbs by dieting over the last two years. Review of Systems All other systems reviewed negative except as stated in [facility] - History History Provided By: Patient - Medical History Medical History: Medical History (Last Reviewed 10/17/17 @ 07:16 by Katherine August) DVT (deep venous thrombosis) Presence of IVC filter A-fib Brain bleed Diabetes GERD (gastroesophageal reflux disease) Hypertension Pulmonary embolism Umbilical hernia - Surgical History Surgical History: Surgical History (Last Reviewed 10/17/17 @ 07:16 by Katherine August) Hx of cholecystectomy Hx of tonsillectomy H/O craniotomy H/O right knee surgery History of appendectomy History of embolectomy - Family History Family History: Family History (Last Reviewed 10/17/17 @ 07:16 by Katherine August) Mother History of liver cancer History of coronary artery disease Father History of valvular heart disease - Tobacco History Second Hand Smoke Exposure: No Tobacco Use In Past 30 Days: No Smoking Status: Never smoker - Alcohol History How Often Do You Have a Drink Containing Alcohol: Never - Substance Use History Substance History: No History of Abuse - Travel History Recent Travel in the [place] Within the Last 8 Weeks: No Recent Travel Out of the Country Within the Last 8 Weeks: No - Immunization History Tetanus Immunization: Unsure Hx Influenza Vaccine This Season: No Medications and Allergies Active Medications: Active Medications Acetaminophen (Tylenol) 650 mg PO Q4H PRN PRN Reason: Temp > 100.4 Al Hydroxide/Mg Hydroxide (Milk Of Magnesia Liq) 30 ml PO Q12H PRN PRN Reason: Mild Constipation Bisacodyl (Dulcolax Supp) 10 mg RECTAL DAILY PRN PRN Reason: SEVERE CONSITIPATION Dextrose (D50w Vial) 50 ml IV.PUSH UNSCH PRN PRN Reason: PER HYPOGLYCEMIA PROTOCOL Doxycycline Hyclate (Vibratab) 100 mg PO Q12HR [facility] Last Admin: 10/19/17 08:49 Dose: 100 mg Glucagon (Glucagon Inj) 1 mg OTHER PRN PRN PRN Reason: for Hypoglycemia Protocol Sodium Chloride (Ns Inj) 1,000 mls @ 84 mls/hr IV.CONT .[id number] [facility] Last Admin: 10/19/17 15:05 Dose: 84 mls/hr Insulin Aspart (Novolog Insulin Correctional Sugar Inj) 0 unit SQ ACHS [facility]; Protocol Last Admin: 10/19/17 17:33 Dose: Not Given Ketorolac Tromethamine (Toradol Inj) 30 mg IV.PUSH Q6H [facility] Stop: 10/21/17 17:59 Last Admin: 10/19/17 17:42 Dose: 30 mg Lactulose (Lactulose Liq) 30 ml PO DAILY PRN PRN Reason: SEVERE CONSITIPATION Methocarbamol (Robaxin) 750 mg PO Q12H [facility] Last Admin: 10/19/17 08:47 Dose: 750 mg Metoprolol Succinate (Toprol Xl) 50 mg PO DAILY [facility] Last Admin: 10/19/17 08:47 Dose: 50 mg Miscellaneous (Pill Splitter) 0 each OTHER PRN [facility] Ondansetron HCl (Zofran Inj) 4 mg IV.PUSH Q6H PRN PRN Reason: NAUSEA OR VOMITING Senna/Docusate Sodium (Tamie-Colace) 1 tab PO BID [facility] Last Admin: 10/19/17 09:17 Dose: Not Given Sennosides (Senokot) 17.2 mg PO Q12H PRN PRN Reason: Moderate Constipation Sertraline HCl (Zoloft) 100 mg PO DAILY [facility] Last Admin: 10/19/17 08:50 Dose: 100 mg Warfarin Sodium (Coumadin) 5 mg PO DAILY@1600 [facility] Last Admin: 10/18/17 17:56 Dose: 5 mg Allergies Allergy/AdvReac Type Severity Reaction Status Date / Time No Known Allergies Allergy Verified 10/16/17 13:35 Home Medications Medication Instructions Recorded Confirmed Type cholecalciferol (vitamin D3) 2,000 unit PO DAILY 10/08/17 10/16/17 History [Vitamin D3] glimepiride 4 mg PO BID 10/08/17 10/16/17 History metoprolol succinate [Toprol XL] 50 mg PO DAILY 10/08/17 10/16/17 History omeprazole 40 mg PO EVERY OTHER DAY 10/08/17 10/16/17 History sertraline 100 mg PO DAILY 10/08/17 10/16/17 History Exam Vital signs: Vital Signs 10/19/17 00:00 10/19/17 06:53 10/19/17 08:00 Temperature 99 F Pulse Rate 75 66 Respiratory Rate Blood Pressure 136/63 118/56 L Pulse Oximetry 95 95 10/19/17 11:42 10/19/17 12:00 10/19/17 17:33 Temperature 97.6 F 96.9 F L Pulse Rate 71 78 Respiratory Rate Blood Pressure 135/63 141/64 H Pulse Oximetry 96 96 10/19/17 18:12 10/19/17 20:00 Temperature 97.4 F L Pulse Rate 72 Respiratory Rate Blood Pressure 132/60 Pulse Oximetry 95 Intake & Output 10/19/17 10/19/17 10/20/17 06:59 18:59 06:59 Intake Total 480 / 480 0 / 0 Output Total 200 / 200 Balance 480 / 480 -200 / -200 Intake: Oral 480 / 480 0 / 0 Output: Urine 200 / 200 Stool 0 / 0 Other: # Voids 3 Date of Last Bowel Movement 10/19/17 # Bowel Movements 1 Narrative: GENERAL: Awake and alert. No acute distress. Cooperative. Obese. HEAD: Normocephalic. Atraumatic. EYES: Pupils equal round and reactive to light bilaterally. No scleral icterus. ENT: Moist oral mucosa. NECK: Trachea midline. CHEST: nonlabored breathing. No respiratory distress. CARDIOVASCULAR: Regular rate and rhythm. ABDOMEN: Obese. approx 4x6 cm granulating wound at umbilicus with deep elongated tract to the right. Some cloudy pinkish brown drainage. No erythema or ttp. SKIN: Warm, dry, nonjaundiced. Pale. Results - Labs 10/19/17 05:48 10/19/17 05:48 Abnormal lab results 10/18/17 10/19/17 10/19/17 Range/Units 22:42 05:48 05:48 RBC 3.87 L (4.00-5.30) mil/mm3 Hgb 11.4 L (11.6-15.3) gm/dL Plt Count 463 H (150-450) th/mm3 Eos % (Auto) 4.4 H (0.0-4.0) % PT 14.9 H (9.8-11.6) sec Estimated GFR (>89) mL/min POC Glucose 145 H (68-110) mg/dl Random Glucose (74-106) mg/dL 10/19/17 10/19/17 10/19/17 Range/Units 05:48 07:50 11:18 RBC (4.00-5.30) mil/mm3 Hgb (11.6-15.3) gm/dL Plt Count (150-450) th/mm3 Eos % (Auto) (0.0-4.0) % PT (9.8-11.6) sec Estimated GFR 84 L (>89) mL/min POC Glucose 118 H 172 H (68-110) mg/dl Random Glucose 125 H (74-106) mg/dL Diabetes panel 10/19/17 Range/Units 05:48 Sodium 142 (136-145) meq/L Potassium 4.0 (3.5-5.1) meq/L Chloride 105 (98-107) meq/L Carbon Dioxide 27.7 (21.0-32.0) meq/L BUN 12 (7-18) mg/dL Creatinine 0.70 (0.50-1.00) mg/dL Calcium 8.7 (8.5-10.1) mg/dL Calcium panel 10/19/17 Range/Units 05:48 Calcium 8.7 (8.5-10.1) mg/dL Pituitary panel 10/19/17 Range/Units 05:48 Sodium 142 (136-145) meq/L Potassium 4.0 (3.5-5.1) meq/L Chloride 105 (98-107) meq/L Carbon Dioxide 27.7 (21.0-32.0) meq/L BUN 12 (7-18) mg/dL Creatinine 0.70 (0.50-1.00) mg/dL Calcium 8.7 (8.5-10.1) mg/dL Adrenal panel 10/19/17 Range/Units 05:48 Sodium 142 (136-145) meq/L Potassium 4.0 (3.5-5.1) meq/L Chloride 105 (98-107) meq/L Carbon Dioxide 27.7 (21.0-32.0) meq/L BUN 12 (7-18) mg/dL Creatinine 0.70 (0.50-1.00) mg/dL Calcium 8.7 (8.5-10.1) mg/dL All other labs normal. 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 This can be managed with local wound care. She can have regular diet and nutrition is very important for the wound healing. If this were to progress into a more high output fistula she can see me in the office as an outpatient. Regarding the large hernia she is a high risk operative candidate at this time with no apparent symptoms aside from the abdominal wound and I would recommend continued nonoperative conservative management.
[2017-10-20] MEDS: Ketorolac Inj 30 MG/ML (IVP) Vial IV.PUSH SCH ×2 (01:00→06:00)
[2017-10-20] MEDS: Sod Chloride 0.9% Inj 1,000 ML IV.CONT SCH (02:55)
[2017-10-20 06:10] LABS: INR 1.4 Ratio; Prothrombin Time 14.4 sec (9.8-11.6)
[2017-10-20] MEDS: Insulin NovoLOG Aspart Correctional Sugar Inj SQ SCH (07:38)
--- NOTE | 2017-10-20 08:11 | P.DS ---
Date of admission: 10/16/17 15:57 Primary care physician: Santana Hargrove Anticipated date of discharge: 10/20/17 Brief History from admission: 62-year-old female with known history of atrial fibrillation, hypertension, history of pulmonary emboli, DVT, diabetes, history of intracranial hemorrhage due to supratherapeutic INR who presented to the emergency department because of supratherapeutic INR. Patient states that all this started approximately 8 days ago when she got her nightgown caught in her electric scooter and when she try to put out she fell backwards onto her butt and back. Patient did come to emergency department time and had CT scans done of her thoracic and lumbar spine without any acute abnormality. Patient was discharged home with pain medication, muscle relaxer. Patient continued to have significant pain and home health care was ordered for her. They came out to her house today for the first time they checked her INR in notified her that it was 8.4 and that she needed to go to the emergency department for evaluation. Patient states that she had had previous elevated INR is in the past and subsequently after that she developed a bilateral intracranial hemorrhage. Patient is very overly concerned about the INR level. She is treated with Coumadin for her atrial fibrillation, she does have history of pulmonary emboli and DVTs. Patient does have IVC filter. Patient presented to the emergency department and had laboratory studies performed her INR was 6.4. Patient does not have any signs of any active bleeding. Did not notice any prolonged bleeding, gums bleeding, dark colored stools, hematochezia, hematuria. ER physician evaluated patient and give the patient vitamin K 5 mg a recommended observation the hospital. Patient still having significant amount of back pain where she is having difficulty in ambulating, getting out of bed. She requested that a Bruno be placed in the emergency department because she is unable to get out of bed to urinate. Patient denies any unilateral lower extremity weakness, paresthesia, paralysis, loss of bowel or bladder control. DS: Diagnosis - Discharge Diagnosis (1) Supratherapeutic INR Status: Acute (2) Intractable low back pain Status: Acute (3) Chronic abdominal wound infection Status: Acute DS: Medications - Discharge Medications Prescriptions: doxycycline hyclate 100 mg PO Q12HR #20 cap ibuprofen 800 mg PO TID PRN #30 tab PRN Reason: Pain methocarbamol 750 mg PO Q12H #14 tab DS: Summary Hospital Course: Patient presented with supratherapeutic INR 6.4. Patient did not have any active bleeding. She does have history of intracranial hemorrhage secondary to elevated INR. She was given vitamin K in the emergency department. Was previously resumed on Coumadin 5 mg daily. 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 It did show a large umbilical hernia containing loops of large and small bowel. A linear track of air is seen within the subcu tissues which could relate to a fistulous communication to 1 of the loops of bowel. Wound culture was obtained , did not grow anything. No leukocytosis or fever. No infectious process noted. General surgery was consulted during hospitalization with recommendations for conservative management and no need for surgery at this time. Wound care nurse was in to see patient during hospitalization with recommendations. These have been reviewed and ordered for discharge, home health care has been arranged for RN to do wound care changes. If needed patient can follow-up with general surgeon upon discharge if wound is worsening. Patient's INR is 1.4 on discharge. Patient was spoken to excessively regarding closely monitoring her INR. In order for an INR has been ordered for 10/22/17 and to follow-up with her primary care doctor hopefully on Wednesday if not on Wednesday. Patient is to take Coumadin 5 mg daily and INR is supposed to be followed with PCP. Patient has been advised to take caution with falls at home. Benefits of Coumadin have been discussed as well as risk. At this time benefits outweigh risks. Patient is willing to take the risks of taking Coumadin. Patient was given Toradol IV as well as Robaxin IV for acute low back pain. This has improved since hospitalization. Physical therapy has been following patient during hospitalization and patient has shown much improvement. Home health care has been arranged for PT a bariatric walker has been given to patient. Diabetes and atrial fibrillation as well as hypertension were controlled during hospitalization. Patient is eager to go home. All acute issues have been resolved. Patient is advised to return to the ED if symptoms persist or worsen. - Time Spent with Patient Total time spent providing and/or coordinating discharge services: Greater than 30 minutes - Quality: VTE Deep Vein Thrombosis/Pulmonary Embolism Present on Admission: No Exam Vital signs: Vital Signs 10/19/17 11:42 10/19/17 12:00 10/19/17 17:33 Temperature 97.6 F 96.9 F L Pulse Rate 71 78 Respiratory Rate Blood Pressure 135/63 141/64 H Pulse Oximetry 96 96 10/19/17 18:12 10/19/17 20:00 10/20/17 00:00 Temperature 97.4 F L 97.4 F L Pulse Rate 72 75 Respiratory Rate 18 18 Blood Pressure 132/60 139/63 Pulse Oximetry 95 95 10/20/17 06:57 Temperature Pulse Rate Respiratory Rate 18 Blood Pressure Pulse Oximetry Intake & Output 10/19/17 10/20/17 10/20/17 18:59 06:59 18:59 Intake Total 0 / 0 1365 / 1365 Output Total 200 / 200 Balance -200 / -200 1365 / 1365 Weight 146.9 kg Intake: IV 1000 / 1000 NS Inj 1,000 ML @ 84 mls/hr IV. 1000 / 1000 CONT .[id number] [facility] Rx#: [id number] Oral 0 / 0 365 / 365 Output: Urine 200 / 200 Stool 0 / 0 Other: # Voids 2 Date of Last Bowel Movement 10/19/17 # Bowel Movements 1 Narrative: GENERAL: Awake and alert. No acute distress. Cooperative. Obese. HEAD: Normocephalic. Atraumatic. EYES: Pupils equal round and reactive to light bilaterally. No scleral icterus. ENT: Moist oral mucosa. NECK: Trachea midline. CHEST: nonlabored breathing. No respiratory distress. CARDIOVASCULAR: Regular rate and rhythm. ABDOMEN: Obese. approx 4x6 cm granulating wound at umbilicus with deep elongated tract to the right. Some cloudy pinkish brown drainage. No erythema or ttp. SKIN: Warm, dry, nonjaundiced. Pale. Results Procedures completed during hospitalization: none Labs on day of discharge: Labs from last 24 hours 10/20/17 10/20/17 10/19/17 07:30 04:35 21:21 CBC w Diff WBC RBC Hgb Hct MCV MCH MCHC RDW Plt Count MPV Neut % (Auto) Lymph % (Auto) Piute % (Auto) Eos % (Auto) Baso % (Auto) Neut # (Auto) Lymph # (Auto) Piute # (Auto) Eos # (Auto) Baso # (Auto) WBC Differential Differential Comment PT 14.4 H INR 1.4 Sodium Potassium Chloride Carbon Dioxide Anion Gap BUN Creatinine Estimated GFR POC Glucose 115 H 144 H Random Glucose Calcium 10/19/17 10/19/17 10/19/17 11:18 05:48 05:48 CBC w Diff Auto diff final WBC 7.4 RBC 3.87 L Hgb 11.4 L Hct 35.3 MCV 91.2 MCH 29.4 MCHC 32.3 RDW 14.5 Plt Count 463 H MPV 7.5 Neut % (Auto) 68.2 Lymph % (Auto) 20.1 Piute % (Auto) 6.4 Eos % (Auto) 4.4 H Baso % (Auto) 0.9 Neut # (Auto) 5.1 Lymph # (Auto) 1.5 Piute # (Auto) 0.5 Eos # (Auto) 0.3 Baso # (Auto) 0.1 WBC Differential . Differential Comment . PT INR Sodium 142 Potassium 4.0 Chloride 105 Carbon Dioxide 27.7 Anion Gap 9 BUN 12 Creatinine 0.70 Estimated GFR 84 L POC Glucose 172 H Random Glucose 125 H Calcium 8.7 Preliminary micro results at discharge 10/18/17 17:50 Wound Culture - Preliminary Wound - Abdominal - Impressions ITS Impressions Abdomen/Pelvis CT 10/19/17 00:00 CONCLUSION: 1. There is a large umbilical hernia containing loops of large and small bowel. A linear tract of air is seen within the subcutaneous tissues which could relate to a fistulous communication to one of the loops of bowel. 2. 5 mm nonobstructing right renal stone. 3. Prior cholecystectomy. Discharge Plan - Discharge Disposition Patient Disposition: W/Home Health Service - Discharge Condition Condition: Stable - Discharge Order Discharge Orders: Discharge Order (Routine); Ordered 10/20/17 Ordered By: Ifeoma Xiong - Discharge Details Anticipated Discharge Date: 10/18/17 Discharge Comment: Wound care clinic follow up please. - Physicians Team Primary Care Provider: Santana Hargrove Attending Provider: Mushtaq Ahuja Other Providers: Dwaine Claros MD
--- NOTE | 2017-10-20 08:11 | P.DCO ---
- Physical Therapy Order: Evaluate and treat, Improve ambulation, Strength and gait training - Home Health Nursing Order: Medical education, Signs/symptoms of disease process, Wound care and dressing changes, Nursing assessment with vital signs Instructions: [facility] nursing for wound care. Wound care recommendations: 1. Cleanse Midline abdomen full thickness ulcer with normal saline pat dry.Skin prep periwound. 2. Gently pack undermining cavity with Maxorb AG (cut in single half piece) Apply with sterile cotton tip applicator, leaving tail on wound base. 3. Cover with Opti foam gentle signa and date all dressing. 4. Please measure wound and undermining weekly. 5. Change dressing Daily x7 days ,Then every 3 days x4 weeks 6. Cleanse pannus and breast skin folds with remedy soft cloth barrier wipes and apply thin layer of Remedy antifungal powder in even thin layer BID or as needed for moisture control. 7. Follow up with out patient wound center. - Certification I have seen patient Anju Scott on 10/20/17. My clinical findings support the need for the requested home health care services because: Limited mobility due to disease progression, Deconditioned with increased weakness I certify that my clinical findings support that this patient is homebound because: Unsteady gait/balance
[2017-10-20 08:26] VITALS: BP 117/76; PULSE 73; RESP 20
[2017-10-20] MEDS: Methocarbamol 500 MG Tablet PO SCH (08:42)
[2017-10-20] MEDS: Sertraline 100 MG Tablet PO SCH (08:43)
[2017-10-20] MEDS: Senna/Docusate Sodium 8.6/50 MG Tablet PO SCH (08:44)
== END 2017-10-20 10:20 | disposition home health service (06) ==
LOC: PHED 12:51 → PHEDA 12:51 → PH3 12:51
PROVIDERS: ADMIT Internal Medicine; ATTEND Internal Medicine